=== PATIENT | male | born 1965 | race Caucasian/White ===

== ENCOUNTER → 2017-01-21 | Outpatient (CLI) | payer MEDICAID ==
[~2017-01-21] MED LIST: ABILIFY2 MG PO; ATACAND8 MG PO; LASIX20 MG PO; METOPROLOL SUCC50 M1 PO; OXYCODONE HYDRO30 MG PO; OXYCODONE SR 4040 MG PO; POTASSIUM CHLO10 ME3 PO; SIMVASTATIN10 MG PO
--- NOTE | 2017-01-21 16:29 | RADIOLOGY REPORT PS360 ---
CHEST(2 VIEWS-NOT PORTABLE) HISTORY: DYSPHAGIA, HOASNESS . Chest pain Patient Age: 51 years: Male dysphagia. Hoarseness. Only able to eat very soft foods Ordering Physician: Pedro Sapp MD TECHNIQUE: PA and lateral chest COMPARISON :None FINDINGS Lungs well expanded and clear with nothing definitely acute. Heart ceasar and mediastinal structures satisfactory. Old granulomatous disease noted. Small calcified hilar nodes T-spine. Marginal osteophytes hyperostosis mild degenerative changes but nothing acute. No osseous lesions chest wall intact IMPRESSION: Lungs clear No active disease of the chest
--- NOTE | 2017-01-21 16:46 | RADIOLOGY REPORT PS360 ---
ESOPHAGUS (BA. SWALLOW) HISTORY: DYSPHAGIA, HOARSNESS Patient Age: 51 years: Male Ordering Physician: Pedro Sapp MD TECHNIQUE: Air-contrast technique barium swallow COMPARISON :None FINDINGS Abnormal appearance to the hypopharynx . I believe there is a focal mass along the right aspect of the hypopharynx just below the right vallecula. It extends to nearly midline CT will be important to further evaluate this area. This suspected mass significantly indents the lateral wall the hypopharynx, nearly to midline. There are anterior marginal osteophytes throughout the C-spine which slightly impinges indent the posterior aspect cervical esophagus but this is minor feature doubt of additional symptomatic significance currently.. Lower cervical esophagus otherwise appears satisfactory. The thoracic esophagus appears normal. The GE junction appears satisfactory. IMPRESSION: Suspect a mass lesion along the right aspect hypopharynx, Most likely along right aspect of epiglottis & level of hyoid-. Just below the right vallecula . Recommend CT neck with contrast to further evaluate this region . Also note deep penetration down to the level of cords, With thin liquids. With scant aspiration just below the cords
== END ==
LOC: RAD 08:57
DX: R13.10 Dysphagia, unspecified (principal); R04.2 Hemoptysis; R49.0 Dysphonia

== ENCOUNTER → 2017-01-26 | Outpatient (CLI) | payer MEDICAID ==
[2017-01-26 14:56] LABS: BUN 14 mg/dL (7-18); GFR (ESTIMATED) 89 ML/MIN (>60)
--- NOTE | 2017-01-31 07:21 | RADIOLOGY REPORT PS360 ---
CT SOFT TISSUE NECK W/CONTRAST INDICATION: DYSPHAGIA, suspected mass on barium swallow ORDERING PHYSICIAN: Pedro Sapp MD PATIENT AGE: 51 years COMPARISON: Barium swallow of 01/21/2017 TECHNIQUE: Axial images are obtained following the intravenous administration of 75 mL's of Isovue-370 contrast. Sagittal and coronal reformatted images are reviewed as well. FINDINGS: Soft tissue mass involves the epiglottis lobulated in nature measuring 3 cm cephalad to caudad, 2.2 cm AP, and 2.6 cm transverse. The vocal folds are symmetric. There is mild thickening of the right area epiglottic fold superiorly at the base of the epiglottis. There is bilateral cervical adenopathy with a thanh mass just posterior and inferior to the right submandibular gland. This mass measures 5 x 3.4 x 4.3 cm. This is anterior to the right carotid artery and jugular vein and at the level of the hyoid with extension both above and below the level the hyoid representing level 2 and 3 lymph nodes. In addition there is mild left-sided neck adenopathy in the deep cervical chain measuring 2.8 x 1.8 cm. This is below the level of the hyoid and represents a level 3 lymph node. There is also a level 2 lymph node in this region at/above the level of the hyoid measuring 1.6 x 1.3 cm. The thyroid gland has an unremarkable appearance. Upper thoracic images show calcified granuloma in the left upper lobe. No acute bony anomalies. IMPRESSION: 1. Soft tissue mass of the epiglottis which may extend into the aryepiglottic fold on the right highly suspicious for neoplasm. 2. Bilateral cervical adenopathy as described above more extensive on the right with both level 2 and level 3 lymph nodes bilaterally IMPRESSION:
== END ==
LOC: RAD 14:30 → LAB 14:34 → RAD 14:34
PROVIDERS: Otolaryngology
DX: R13.10 Dysphagia, unspecified (principal); R01.2 Other cardiac sounds; R49.0 Dysphonia
CPT/HCPCS: Q9967